=== PATIENT | male | born 1985 | race African-American/Black ===

== ENCOUNTER 2020-02-05 15:54 | Emergency (ER) | payer MEDICAID ==
[~2020-02-05] VITALS: Ht 195.6 cm; Wt 91.0 kg
[2020-02-05 16:45] VITALS: BP 117/60
[2020-02-05] MEDS ORDERED: HYDROCODONE/ACETAMINOPHEN 5/325MG TABLET PO ONE (16:45)
[2020-02-05] MEDS ORDERED: IBUPROFEN 600MG TABLET PO ONE (16:45)
[2020-02-05] MEDS ORDERED: CLINDAMYCIN HCL 150MG CAPSULE PO STA (17:32)
== END 2020-02-05 18:56 | disposition home or self-care (01) ==
LOC: ER 15:54
DX: S61.215A Laceration without foreign body of left ring finger without damage to nail, initial encounter (principal); L03.012 Cellulitis of left finger; X58.XXXA Exposure to other specified factors, initial encounter; Y93.89 Activity, other specified; Y92.89 Other specified places as the place of occurrence of the external cause
CPT/HCPCS: 73130; 99284

== ENCOUNTER 2024-04-06 05:16 | Emergency (ER) | payer SELFPAY ==
[~2024-04-06] VITALS: Ht 182.9 cm; Wt 91.0 kg
[2024-04-06 05:20] VITALS: TEMP 98.7; O2SAT 99
[2024-04-06] MEDS ORDERED: ACETAMINOPHEN 325MG TABLET PO ONE (07:45)
[2024-04-06] MEDS ORDERED: METH-653 MT (08:08)
[2024-04-06] MEDS ORDERED: IBUP-2028 MT (08:08)
[2024-04-06] MEDS ORDERED: IBUPROFEN 400MG TABLET PO ONE (08:15)
[2024-04-06 08:45] VITALS: BP 125/82; PULSE 62; RESP 15; O2SAT 100
== END 2024-04-06 09:11 | disposition home or self-care (01) ==
LOC: ER 05:16
DX: R51.9 Headache, unspecified (principal); Z87.891 Personal history of nicotine dependence; V49.49XA Driver injured in collision with other motor vehicles in traffic accident, initial encounter; Y93.89 Activity, other specified; Y92.89 Other specified places as the place of occurrence of the external cause; Y99.8 Other external cause status
CPT/HCPCS: 99284